=== PATIENT | male | born 1975 ===

== ENCOUNTER 2017-11-09 17:29 | Emergency (ER) | payer BC ==
--- NOTE | 2017-11-09 17:37 | UC ---
Back Pain HPI - HPI Summary HPI Summary: 42 year old male presents with complains of right sided back pain after falling. - History of Current Complaint Stated Complaint: FALL/ BACK PAIN Time Seen by Provider: 11/09/17 17:36 Hx Obtained From: Patient Onset/Duration: Sudden Onset Timing: Constant Severity Initially: Moderate Severity Currently: Moderate Pain Scale Used: 0-10 Numeric - 8 Back Pain: Is Discrete @ - rigght parapsinal lumbar Aggravating Factor(s): Movement - Allergies/Home Medications Allergies/Adverse Reactions: Allergies Allergy/AdvReac Type Severity Reaction Status Date / Time No Known Allergies Allergy Verified 06/16/13 18:37 Home Medications: Home Medications Sertraline HCl (Bulk) [Sertraline HCl] 11/09/17 [History] PMH/Surg Hx/FS Hx/Imm Hx Previously Healthy: Yes - Surgical History Surgical History: None - Family History Known Family History: Positive: None - Social History Alcohol Use: Occasionally Substance Use Type: None Smoking Status (MU): Never Smoked Tobacco Review of Systems Constitutional: Negative Skin: Negative Eyes: Negative ENT: Negative Respiratory: Negative Cardiovascular: Negative Gastrointestinal: Negative Genitourinary: Negative Motor: Negative Neurovascular: Negative Musculoskeletal: Other: - right lower back pain/spasm Neurological: Negative Psychological: Negative All Other Systems Reviewed And Are Negative: Yes Physical Exam Triage Information Reviewed: Yes Vital Signs Reviewed: Yes Eye Exam: Normal ENT Exam: Normal Dental Exam: Normal Neck exam: Normal Neck: Positive: 1 Respiratory Exam: Normal Cardiovascular Exam: Normal Abdominal Exam: Normal Musculoskeletal: Positive: Other: - right lower back pain/spasm Neurological Exam: Normal Psychological Exam: Normal Skin Exam: Normal Back Pain Course/Dx - Differential Dx/Diagnosis Provider Diagnoses: right lower back pain/spasm Discharge - Discharge Plan Condition: Stable Disposition: HOME Prescriptions: Meloxicam [Mobic] 7.5 mg PO BID #30 tab Methocarbamol TAB* [Robaxin 500 MG TAB*] 500 mg PO TID PRN #30 tab PRN Reason: Spasms - Back Patient Education Materials: Low Back Strain (ED), Acute Low Back Pain (ED) Referrals: [facility] [place],PT [Medical Doctor] - No Primary Care Phys,NOPCP [Primary Care Provider] -
[2017-11-09 17:46] VITALS: BP 137/76
--- NOTE | 2017-11-09 18:39 | RAD ---
INDICATION: Back pain COMPARISON: None TECHNIQUE: Routine PA, lateral, and oblique imaging was performed . FINDINGS: Bones: There are no acute bony findings. There are mild arthritic changes consisting of minor vertebral spurring. There is mild facet arthropathy at L5-S1. 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 Alignment: Normal Disc spaces: The disc spaces are well-maintained Soft tissues: There are no soft tissue abnormalities. IMPRESSION: MILD OSTEOARTHRITIC CHANGES DESCRIBED.
== END 2017-11-09 18:49 | disposition home or self-care (01) ==
LOC: UCEAST 17:29
DX: M54.5 Low back pain (principal); M62.830 Muscle spasm of back; W19.XXXA Unspecified fall, initial encounter; Y93.9 Activity, unspecified; Y92.9 Unspecified place or not applicable; Y99.9 Unspecified external cause status; Z72.89 Other problems related to lifestyle
CPT/HCPCS: 72110; 99212; G0463